=== PATIENT | male | born 1975 | race Caucasian/White ===

== ENCOUNTER 2018-10-23 21:53 | Emergency (ER) | payer OTHER ==
--- NOTE | 2018-10-23 22:12 | EDM.PDOC ---
ED HPI GENERAL MEDICAL PROBLEM - General Chief Complaint: Lower Extremity Injury/Pain Stated Complaint: INJURED RT KNEE Time Seen by Provider: 10/23/18 22:10 - History of Present Illness INITIAL COMMENTS - FREE TEXT/NARRATIVE: HISTORY AND PHYSICAL: History of present illness: Patient 43-year-old white male presents with substernal bilateral knee injury when he fell from a ladder as was direct blunt force trauma to his knees bilaterally. He did sustain a minor abrasion to his left forearm denies other trauma or concern Review of systems: As per history of present illness and below otherwise all systems reviewed and negative. Past medical history: As per history of present illness and as reviewed below otherwise noncontributory. Surgical history: As per history of present illness and as reviewed below otherwise noncontributory. Social history: No reported history of drug or alcohol abuse. Family history: As per history of present illness and as reviewed below otherwise noncontributory. Physical exam: HEENT: Atraumatic, normocephalic, pupils reactive, negative for conjunctival pallor or scleral icterus, mucous membranes moist, throat clear, neck supple, nontender, trachea midline. Lungs: Clear to auscultation, breath sounds equal bilaterally, chest nontender. Heart: S1S2, regular, negative for clicks, rubs, or JVD. Abdomen: Soft, nondistended, nontender. Negative for masses or hepatosplenomegaly. Negative for costovertebral tenderness. Pelvis: Stable nontender. Genitourinary: Deferred. Rectal: Deferred. Extremities: Knee grossly stable bilaterally no point tenderness or crepitation neurovascular exam unremarkable Neuro: Awake, alert, oriented. Cranial nerves II through XII unremarkable. Cerebellum unremarkable. Motor and sensory unremarkable throughout. Exam nonfocal. Diagnostics: X-ray right/left knee Therapeutics: None Impression: #1 bilateral knee injury (contusion) Definitive disposition and diagnosis as appropriate pending reevaluation and review of above. - Related Data Allergies Allergy/AdvReac Type Severity Reaction Status Date / Time No Known Allergies Allergy Verified 10/16/13 00:51 Home Meds: Home Meds . [No Known Home Meds] 10/16/13 [History] Past Medical History - Past Health History Medical/Surgical History: Denies Medical/Surgical History Review of Systems - Review of Systems Review Of Systems: ROS reveals no pertinent complaints other than HPI. ED EXAM, GENERAL - Physical Exam Exam: See Below (dictation) Departure - Departure Time of Disposition: 22:11 Disposition: Home, Self-Care 01 Condition: Good Clinical Impression: Knee injury - Discharge Information Referrals: PCP,None [Primary Care Provider] - Additional Instructions: The following information is given to patients seen in the emergency department who are being discharged to home. This information is to outline your options for follow-up care. We provide all patients seen in our emergency department with a follow-up referral. The need for follow-up, as well as the timing and circumstances, are variable depending upon the specifics of your emergency department visit. If you don't have a primary care physician on staff, we will provide you with a referral. We always advise you to contact your personal physician following an emergency department visit to inform them of the circumstance of the visit and for follow-up with them and/or the need for any referrals to a consulting specialist. The emergency department will also refer you to a specialist when appropriate. This referral assures that you have the opportunity for followup care with a specialist. All of these measure are taken in an effort to provide you with optimal care, which includes your followup. Under all circumstances we always encourage you to contact your private physician who remains a resource for coordinating your care. When calling for followup care, please make the office aware that this follow-up is from your recent emergency room visit. If for any reason you are refused follow-up, please contact the [facility] emergency department at and asked to speak to the emergency department charge nurse. Motrin/Tylenol as directed follow-up primary medical doctor as needed as discussed and return as needed as discussed
--- NOTE | 2018-10-23 22:53 | CR ---
INDICATION: History of fall. Bilateral knee pain TECHNIQUE: Knee radiograph 5 views bilateral COMPARISON: None FINDINGS: Bone: No acute fractures or aggressive bone lesions are identified. Joint: The joint spaces of the medial, lateral, and patellofemoral compartments are unremarkable. No significant knee effusion is seen. Soft tissue: Unremarkable. No radiopaque foreign bodies are seen. IMPRESSION: 1. No acute osseous injuries or abnormalities are noted. Dictated by: Clifford Cardoso MD @ 10/23/2018 22:51:03 (Electronically Signed)
== END 2018-10-23 23:21 | disposition home or self-care (01) ==
LOC: MW.ED 21:53
DX: S80.01XA Contusion of right knee, initial encounter (principal); S80.02XA Contusion of left knee, initial encounter; W11.XXXA Fall on and from ladder, initial encounter
CPT/HCPCS: 735622650; 73562-50; 99283-25